=== PATIENT | female | born 1950 | race Asian ===

== ENCOUNTER 2017-06-27 16:12 | Outpatient (CLI) | payer MEDICARE, OTHER ==
[2017-06-27 12:50] LABS: BASOPHILS % (AUTO) 0.7 %; EOSINOPHILS # (AUTO) 0.1 10^3/uL (0.0-0.7); EOSINOPHILS % (AUTO) 2.2 %; HCT - HEMATOCRIT 41.3 % (37.0-47.0); HGB - HEMOGLOBIN 13.9 g/dL (12.0-16.0); LYMPHOCYTES # (AUTO) 2.6 10^3/uL (1.5-3.5); LYMPHOCYTES % (AUTO) 43.8 %; MEAN CORPUSCULAR HEMOGLOBIN 29.5 pg (27.0-31.0); MEAN CORPUSCULAR HGB CONC 33.7 g/dL (32.0-36.0); MEAN CORPUSCULAR VOLUME 87.6 fL (81.0-99.0); MEAN PLATELET VOLUME 8.8 fL (7.9-10.8); MONOCYTES # (AUTO) 0.4 10^3/uL (0.0-1.0); MONOCYTES % (AUTO) 6.1 %; NEUTROPHILS # (AUTO) 2.8 10^3/uL (1.5-6.6); NEUTROPHILS % (AUTO) 47.2 %; NUCLEATED RED BLOOD CELLS AUTO 0.1 /100WBC; RED BLOOD COUNT 4.71 10^6/uL (4.20-5.40); RED CELL DISTRIBUTION WIDTH 13.8 % (12.0-15.0); UNCORRECTED WHITE BLOOD COUNT 5.9 x10^3/uL; WHITE BLOOD COUNT 5.9 x10^3/uL (4.8-10.8)
[2017-06-27 13:33] LABS: ALBUMIN/GLOBULIN RATIO 1.2 (1.0-2.2); BILIRUBIN,TOTAL 0.9 mg/dL (0.2-1.0); BUN - BLOOD UREA NITROGEN 15 mg/dL (6-20); CALCIUM 9.2 mg/dL (8.5-10.3); CARBON DIOXIDE - CO2 28 mmol/L (21-32); CHLORIDE 101 mmol/L (101-111); CHOL/HDL RATIO 2.9 (<4.4); CHOLESTEROL 195 mg/dL; CREATININE 0.8 mg/dL (0.4-1.0); GFR - MDRD 72 (>89); GLUCOSE 99 mg/dL (70-100); HDL CHOLESTEROL 67 mg/dL; LDL/HDL RATIO 1.6 (<4.4); POTASSIUM 3.5 mmol/L (3.5-5.0); SODIUM 137 mmol/L (135-145); TOTAL PROTEIN 7.1 g/dL (6.7-8.2); TRIGLYCERIDES 116 mg/dL; VLDL CHOLESTEROL 23 mg/dL
== END 2017-06-27 16:13 | disposition home or self-care (01) ==
LOC: LAB.WCP 16:12
PROVIDERS: ATTEND Family Medicine
DX: E03.9 Hypothyroidism, unspecified (principal); E78.5 Hyperlipidemia, unspecified
CPT/HCPCS: 36415; 80053; 80061; 84443; 85025

== ENCOUNTER 2018-05-03 13:37 | Outpatient (CLI) | payer MEDICARE, OTHER ==
--- NOTE | 2018-05-05 15:09 | Mammography Report ---
Procedure Date: 05/03/2018 Accession Number: [id number] / [id number] Procedure: MGN - Screening Mammo Dig Bilat CPT Code: FULL RESULT: EXAM: Screening Mammo Dig Bilat DATE: 05/03/2018 1:58 PM CLINICAL HISTORY: 67-year-old nulliparous patient for screening TECHNIQUE: Bilateral CC, laterally exaggerated CC, MLO views were obtained. COMPARISON: 05/31/2016, 04/03/2015, 03/17/2015, 11/07/2013, 05/22/2012, 04/15/2011 FINDINGS: The breasts demonstrate heterogeneously dense fibroglandular parenchyma bilaterally. Punctate, typically benign calcifications are present. No suspicious masses, clustered microcalcifications, or regions of architectural distortion are identified. IMPRESSION: Benign findings RECOMMENDATION: Routine annual screening unless otherwise clinically indicated. BIRADS CATEGORY 2: Benign findings STANDARD QUALIFYING STATEMENTS: 1. This examination was reviewed with the aid of Computer-Aided Detection (CAD). 2. A negative or benign imaging report should not delay biopsy if clinically suspicious findings are present. Consider surgical consultation if warrented. More than 5% of cancers are not identified by imaging. 3. Dense breasts may obscure an underlying neoplasm.
== END 2018-05-03 13:38 | disposition home or self-care (01) ==
LOC: DI.N 13:37
PROVIDERS: ATTEND Family Medicine
DX: Z12.31 Encounter for screening mammogram for malignant neoplasm of breast (principal)
CPT/HCPCS: 77067

== ENCOUNTER 2018-05-23 09:18 | Outpatient (CLI) | payer MEDICARE, OTHER ==
[2018-05-23 12:43] LABS: BASOPHILS % (AUTO) 0.4 %; EOSINOPHILS # (AUTO) 0.1 10^3/uL (0.0-0.7); EOSINOPHILS % (AUTO) 1.7 %; HGB - HEMOGLOBIN 14.3 g/dL (12.0-16.0); LYMPHOCYTES # (AUTO) 2.3 10^3/uL (1.5-3.5); MEAN CORPUSCULAR HEMOGLOBIN 29.6 pg (27.0-31.0); MEAN CORPUSCULAR HGB CONC 32.8 g/dL (32.0-36.0); MEAN CORPUSCULAR VOLUME 90.4 fL (81.0-99.0); MEAN PLATELET VOLUME 9.2 fL (7.9-10.8); MONOCYTES # (AUTO) 0.4 10^3/uL (0.0-1.0); MONOCYTES % (AUTO) 6.2 %; NEUTROPHILS # (AUTO) 3.2 10^3/uL (1.5-6.6); NEUTROPHILS % (AUTO) 52.7 %; PLT - PLATELET COUNT 231 10^3/uL (130-450); RED BLOOD COUNT 4.82 10^6/uL (4.20-5.40)
[2018-05-23 13:02] LABS: ALBUMIN 3.9 g/dL (3.2-5.5); ALBUMIN/GLOBULIN RATIO 1.1 (1.0-2.2); ALKALINE PHOSPHATASE 49 IU/L (42-121); ALT ALANINE AMINOTRANSFERASE 26 IU/L (10-60); AST ASPARTATE AMINOTRANSFERASE 25 IU/L (10-42); BILIRUBIN,TOTAL 0.8 mg/dL (0.2-1.0); BUN - BLOOD UREA NITROGEN 22 mg/dL (6-20); CALCIUM 9.4 mg/dL (8.5-10.3); CARBON DIOXIDE - CO2 28 mmol/L (21-32); CHLORIDE 99 mmol/L (101-111); CHOL/HDL RATIO 3.2 (<4.4); CHOLESTEROL 240 mg/dL; CREATININE 0.8 mg/dL (0.4-1.0); GFR - MDRD 72 (>89); GLUCOSE 100 mg/dL (70-100); HDL CHOLESTEROL 74 mg/dL; LDL CHOLESTEROL,CALCULATED 135 mg/dL; LDL/HDL RATIO 1.8 (<4.4); SODIUM 135 mmol/L (135-145); THYROID STIMULATING HORMONE 0.33 uIU/mL (0.34-5.60); TOTAL PROTEIN 7.6 g/dL (6.7-8.2); VLDL CHOLESTEROL 31 mg/dL
[2018-05-23 13:04] LABS: FREE T4 (FREE THYROXINE) 1.09 ng/dL (0.58-1.64)
== END 2018-05-23 09:19 | disposition home or self-care (01) ==
LOC: LAB.WCP 09:18
PROVIDERS: ATTEND Family Medicine
DX: K59.09 Other constipation (principal); E04.2 Nontoxic multinodular goiter; E03.9 Hypothyroidism, unspecified
CPT/HCPCS: 36415; 80053; 80061; 83721; 84439; 84443; 85025

== ENCOUNTER 2019-06-20 08:00 | Outpatient (CLI) | payer MEDICARE, OTHER ==
[2019-06-20 12:45] LABS: BASOPHILS % (AUTO) 0.4 %; EOSINOPHILS # (AUTO) 0.2 10^3/uL (0.0-0.7); EOSINOPHILS % (AUTO) 2.2 %; HGB - HEMOGLOBIN 14.5 g/dL (12.0-16.0); LYMPHOCYTES # (AUTO) 3.2 10^3/uL (1.5-3.5); LYMPHOCYTES % (AUTO) 47.6 %; MEAN CORPUSCULAR HEMOGLOBIN 29.1 pg (27.0-31.0); MEAN CORPUSCULAR HGB CONC 31.8 g/dL (32.0-36.0); MEAN CORPUSCULAR VOLUME 91.6 fL (81.0-99.0); MEAN PLATELET VOLUME 10.8 fL (7.9-10.8); MONOCYTES # (AUTO) 0.5 10^3/uL (0.0-1.0); MONOCYTES % (AUTO) 6.9 %; NEUTROPHILS # (AUTO) 2.9 10^3/uL (1.5-6.6); NEUTROPHILS % (AUTO) 42.8 %; PLT - PLATELET COUNT 263 10^3/uL (130-450); RED BLOOD COUNT 4.98 10^6/uL (4.20-5.40); RED CELL DISTRIBUTION WIDTH 13.5 % (12.0-15.0); WHITE BLOOD COUNT 6.8 x10^3/uL (4.8-10.8)
[2019-06-20 13:38] LABS: HEMOGLOBIN A1C 0.61 g/dL; HEMOGLOBIN A1C % 5.9 % (4.6-6.2)
[2019-06-20 13:41] LABS: ALBUMIN/GLOBULIN RATIO 1.2 (1.0-2.2); ALKALINE PHOSPHATASE 55 IU/L (42-121); ALT ALANINE AMINOTRANSFERASE 23 IU/L (10-60); AST ASPARTATE AMINOTRANSFERASE 26 IU/L (10-42); BILIRUBIN,TOTAL 0.9 mg/dL (0.2-1.0); BUN - BLOOD UREA NITROGEN 25 mg/dL (6-20); CALCIUM 9.5 mg/dL (8.5-10.3); CARBON DIOXIDE - CO2 28 mmol/L (21-32); CHLORIDE 101 mmol/L (101-111); CHOL/HDL RATIO 2.8 (<4.4); CHOLESTEROL 235 mg/dL; CREATININE 0.8 mg/dL (0.4-1.0); GFR - MDRD 71 (>89); GLUCOSE 95 mg/dL (70-100); HDL CHOLESTEROL 83 mg/dL; LDL CHOLESTEROL,CALCULATED 122 mg/dL; LDL/HDL RATIO 1.5 (<4.4); SODIUM 139 mmol/L (135-145); TOTAL PROTEIN 7.3 g/dL (6.7-8.2); VLDL CHOLESTEROL 30 mg/dL
== END 2019-06-20 08:01 | disposition home or self-care (01) ==
LOC: LAB.WCP 08:00
PROVIDERS: ATTEND Family Medicine
DX: E04.2 Nontoxic multinodular goiter (principal); E78.5 Hyperlipidemia, unspecified; R73.02 Impaired glucose tolerance (oral)
CPT/HCPCS: 36415; 80053; 80061; 83036; 83721; 84443; 85025

== ENCOUNTER 2019-07-12 13:26 | Outpatient (CLI) | payer MEDICARE, OTHER ==
--- NOTE | 2019-07-12 15:58 | Mammography Report ---
Reason: SCREENING MAMMO Procedure Date: 07/12/2019 Accession Number: [id number] / [id number] Procedure: MGN - Screening Mammo Dig Bilat CPT Code: FULL RESULT: EXAM: Screening Mammo Dig Bilat DATE: 07/12/2019 1:50 PM CLINICAL HISTORY: Routine screening. No reported personal or family history of breast cancer. TECHNIQUE: (B) - Bilateral CC and MLO views were obtained. COMPARISON: 05/03/2018 through 11/07/2013. PARENCHYMAL PATTERN: (D) - The breasts demonstrate heterogeneously dense fibroglandular parenchyma bilaterally. FINDINGS: Bilateral breasts: There are no suspicious masses, calcifications, or areas of distortion. IMPRESSION: Negative examination. BI-RADS category 1. RECOMMENDATION: (ANNUAL) - Recommend routine annual screening mammography. BI-RADS CATEGORY: (1) - Negative. STANDARD QUALIFYING STATEMENTS: 1. This examination was not reviewed with the aid of Computer-Aided Detection (CAD). 2. A negative or benign imaging report should not preclude biopsy if clinically suspicious findings are present. 3. Dense breasts may obscure an underlying neoplasm. 4. This examination was reviewed without the aid of 3D breast imaging (tomosynthesis).
== END 2019-07-12 13:27 | disposition home or self-care (01) ==
LOC: DI.N 13:26
DX: Z12.31 Encounter for screening mammogram for malignant neoplasm of breast (principal)
CPT/HCPCS: 77067

== ENCOUNTER 2020-05-26 09:18 | Outpatient (CLI) | payer MEDICARE, OTHER ==
[2020-05-26 13:12] LABS: BASOPHILS % (AUTO) 0.3 %; EOSINOPHILS # (AUTO) 0.1 10^3/uL (0.0-0.7); EOSINOPHILS % (AUTO) 1.4 %; HGB - HEMOGLOBIN 14.7 g/dL (12.0-16.0); LYMPHOCYTES # (AUTO) 2.4 10^3/uL (1.5-3.5); LYMPHOCYTES % (AUTO) 33.5 %; MEAN CORPUSCULAR HGB CONC 31.7 g/dL (32.0-36.0); MEAN CORPUSCULAR VOLUME 91.3 fL (81.0-99.0); MEAN PLATELET VOLUME 11.2 fL (7.9-10.8); MONOCYTES # (AUTO) 0.4 10^3/uL (0.0-1.0); MONOCYTES % (AUTO) 5.6 %; NEUTROPHILS # (AUTO) 4.3 10^3/uL (1.5-6.6); NEUTROPHILS % (AUTO) 58.9 %; PLT - PLATELET COUNT 256 10^3/uL (130-450); RED BLOOD COUNT 5.07 10^6/uL (4.20-5.40); RED CELL DISTRIBUTION WIDTH 13.4 % (12.0-15.0); WHITE BLOOD COUNT 7.2 x10^3/uL (4.8-10.8)
[2020-05-26 13:48] LABS: ALBUMIN 4.8 g/dL (3.2-5.5); ALBUMIN/GLOBULIN RATIO 1.6 (1.0-2.2); BILIRUBIN,TOTAL 0.8 mg/dL (0.2-1.0); CALCIUM 9.6 mg/dL (8.5-10.3); CREATININE 0.9 mg/dL (0.4-1.0); TOTAL PROTEIN 7.8 g/dL (6.7-8.2)
== END 2020-05-26 23:59 | disposition home or self-care (01) ==
LOC: LAB.WCP 09:18
PROVIDERS: ATTEND Family Medicine
DX: E04.2 Nontoxic multinodular goiter (principal); E03.9 Hypothyroidism, unspecified; E78.5 Hyperlipidemia, unspecified
CPT/HCPCS: 36415; 80053; 84443; 85025

== ENCOUNTER 2020-08-12 10:05 | Outpatient (CLI) | payer MEDICARE, OTHER ==
--- NOTE | 2020-08-13 14:14 | Mammography Report ---
BILATERAL DIGITAL DIAGNOSTIC MAMMOGRAM 3D/2D: 08/12/2020 CLINICAL: Occasional left breast pain. Diffuse left breast pain. Comparison is made to exams dated: 07/12/2019 mammogram, 05/03/2018 mammogram, 05/31/2016 mammogram, mammogram, 11/07/2013 mammogram, and 05/22/2012 mammogram - [facility]. The tissue of both breasts is heterogeneously dense. This may lower the sensitivity of mammography. No significant masses, calcifications, or other findings are seen in either breast. IMPRESSION: NEGATIVE There is no mammographic evidence of malignancy. No abnormality or significant mammographic change in this patient with diffuse breast pain. Exam findings were conveyed to the patient. The patient was advised to monitor for significant change and follow-up with her Doctor as needed. Otherwise, a 1 year screening mammogram is recommended. This exam was interpreted at Station ID: [id number]. NOTE: For mammograms, a report in lay terms will be sent to the patient. Approximately 15% of breast malignancies will not be visualized mammographically. In the management of a palpable breast mass, a negative mammogram must not discourage biopsy of a clinically suspicious lesion. Electronically Signed By: Maldoando Oliver M.D. slc/:08/12/2020 10:56:40 ACR BI-RADS Category 1: Negative 3341F PARENCHYMAL PATTERN: (D) - The breast(s) demonstrate(s) heterogeneously dense fibroglandular kimmy kennedy. BI-RADS CATEGORY: (1) - 1 RECOMMENDATION: (ANNUAL) - Recommend routine annual screening mammography. [id number] 1 year screening LATERALITY: (B)
== END 2020-08-12 10:06 | disposition home or self-care (01) ==
LOC: DI 10:05
PROVIDERS: ATTEND Family Medicine
DX: N64.4 Mastodynia (principal)
CPT/HCPCS: 77066

== ENCOUNTER 2020-11-24 08:49 | Outpatient (CLI) | payer MEDICARE, OTHER ==
[2020-11-24 12:08] LABS: BASOPHILS % (AUTO) 0.5 %; EOSINOPHILS # (AUTO) 0.1 10^3/uL (0.0-0.7); HGB - HEMOGLOBIN 14.1 g/dL (12.0-16.0); LYMPHOCYTES % (AUTO) 35.1 %; MEAN CORPUSCULAR HEMOGLOBIN 29.7 pg (27.0-31.0); MEAN CORPUSCULAR HGB CONC 32.3 g/dL (32.0-36.0); MEAN CORPUSCULAR VOLUME 91.8 fL (81.0-99.0); MEAN PLATELET VOLUME 10.8 fL (7.9-10.8); MONOCYTES # (AUTO) 0.4 10^3/uL (0.0-1.0); MONOCYTES % (AUTO) 6.7 %; NEUTROPHILS # (AUTO) 3.3 10^3/uL (1.5-6.6); NEUTROPHILS % (AUTO) 56.5 %; PLT - PLATELET COUNT 233 10^3/uL (130-450); RED BLOOD COUNT 4.75 10^6/uL (4.20-5.40); RED CELL DISTRIBUTION WIDTH 13.1 % (12.0-15.0); WHITE BLOOD COUNT 5.8 x10^3/uL (4.8-10.8)
[2020-11-24 13:17] LABS: ALBUMIN 4.1 g/dL (3.2-5.5); ALBUMIN/GLOBULIN RATIO 1.3 (1.0-2.2); ALKALINE PHOSPHATASE 39 IU/L (42-121); ALT ALANINE AMINOTRANSFERASE 21 IU/L (10-60); AST ASPARTATE AMINOTRANSFERASE 22 IU/L (10-42); BILIRUBIN,TOTAL 0.9 mg/dL (0.2-1.0); BUN - BLOOD UREA NITROGEN 22 mg/dL (6-20); CALCIUM 9.5 mg/dL (8.5-10.3); CARBON DIOXIDE - CO2 28 mmol/L (21-32); CHLORIDE 104 mmol/L (101-111); CHOL/HDL RATIO 2.5 (<4.4); CHOLESTEROL 192 mg/dL; CREATININE 0.8 mg/dL (0.4-1.0); GLUCOSE 113 mg/dL (70-100); HDL CHOLESTEROL 77 mg/dL; LDL CHOLESTEROL,CALCULATED 99 mg/dL; LDL/HDL RATIO 1.3 (<4.4); TOTAL PROTEIN 7.2 g/dL (6.7-8.2); VLDL CHOLESTEROL 16 mg/dL
[2020-11-24 13:40] LABS: HEMOGLOBIN A1c% 5.7 % (4.27-6.07)
[2020-11-24 14:02] LABS: FREE T4 (FREE THYROXINE) 1.21 ng/dL (0.58-1.64)
== END 2020-11-24 23:59 | disposition home or self-care (01) ==
LOC: LAB.WCP 08:49
PROVIDERS: ATTEND Nurse Practitioner Family
DX: E74.39 Other disorders of intestinal carbohydrate absorption (principal); E78.5 Hyperlipidemia, unspecified; G62.9 Polyneuropathy, unspecified; K64.9 Unspecified hemorrhoids; R19.7 Diarrhea, unspecified
CPT/HCPCS: 36415; 80053; 80061; 83036; 83721; 84439; 84443; 85025

== ENCOUNTER 2020-12-01 13:50 | Outpatient (CLI) | payer MEDICARE, OTHER ==
[2020-12-01 20:22] LABS: CREATININE,URINE 39.2 mg/dL; MICROALBUM/CREATININE RATIO,UR 1882.7 ug/mg (<30.0); MICROALBUMIN,URINE 73.8 mg/dL (0-300.0)
== END 2020-12-01 23:59 ==
LOC: LAB.WCP 13:50
PROVIDERS: ATTEND Nurse Practitioner Family
DX: R80.9 Proteinuria, unspecified (principal)
CPT/HCPCS: 82043; 82570; 84156

== ENCOUNTER 2021-01-15 08:39 | Day surgery (SDC) | payer MEDICARE, OTHER ==
[2021-01-15] MEDS ORDERED: LACTATED RINGERS 1,000 ML IV ONE ×2 (08:51→10:46)
[2021-01-15] MEDS ORDERED: fentaNYL 250 MCG/5 ML VIAL ONE (10:12)
[2021-01-15] MEDS ORDERED: MIDAZOLAM 2 MG/2 ML VIAL ONE ×2 (10:12→10:14)
[2021-01-15] MEDS ORDERED: LIDOCAINE JELLY 2% 6 ML JEL.PF.APP UR ONE (10:36)
[2021-01-15] MEDS ORDERED: LIDOCAINE JELLY 2% 6 ML JEL.PF.APP ONE (10:47)
--- NOTE | 2021-01-15 10:59 | OPERATIVE REPORT ---
Operative Report - General Procedure Date: 01/15/21 Planned Procedure: EUA with hemorrhoid banding Pre-Op Diagnosis: Prolapsed and bleeding internal hemorrhoids Procedure Performed: EUA with hemorrhoid banding Post Op Diagnosis: Same - Procedure Note Primary Surgeon: Mercedes Anesthesia Technique: Local, Moderate sedation Estimated Blood Loss (mL): 0 Findings: Pelvic floor relaxation with rectocele and internal hemorrhoids Complications: None apparent - Other Other Information/Narrative: Colonoscopy was completed immediately prior to the banding procedure. Timeout was done at the start of the colonoscopy procedure.The patient remained sedated with monitored anesthesia care at this time. All elements of the surgical safety checklist were followed before, during, and after this procedure. The anoscope with obturator was lubricated and placed in the patient's anal canal. The obturator was removed to visualize the first column of hemorrhoids at the 4 o'clock position. The tissue was grasped and a single band deployed with good placement and traction. The retractor was roatated to the view the complex at the 11 o'clock position. Again, the tissue was grasped and a single band deployed with good placement and traction. The retractor was roatated to the view the complex at the 8 o'clock position. Again, the tissue was grasped and a single band deployed with good placement and traction.The anoscope was removed and the procedure concluded. The patient tolerated the procedure well. She was allowed awaken from sedation and taken to the postanesthesia care unit in good condition.
[2021-01-15 11:34] VITALS: BP 97/57
== END 2021-01-15 08:40 | disposition home or self-care (01) ==
LOC: SDS 08:39
PROVIDERS: ATTEND Surgery
PROC: 0DJD8ZZ Inspection of Lower Intestinal Tract, Via Natural or Artificial Opening Endoscopic (ICD-10-PCS; 2021-01-15)
PROC: 06LY4CC Occlusion of Hemorrhoidal Plexus with Extraluminal Device, Percutaneous Endoscopic Approach (ICD-10-PCS; principal; 2021-01-15 09:45)
DX: K62.5 Hemorrhage of anus and rectum (principal); K64.8 Other hemorrhoids; K57.30 Diverticulosis of large intestine without perforation or abscess without bleeding; K59.00 Constipation, unspecified; N81.89 Other female genital prolapse; N81.6 Rectocele
CPT/HCPCS: 45378; 46221; J3010; J7120

== ENCOUNTER 2021-03-03 14:38 | Outpatient (CLI) | payer MEDICARE, OTHER ==
[2021-03-03 18:37] LABS: THYROID STIMULATING HORMONE 0.15 uIU/mL (0.34-5.60)
[2021-03-03 18:39] LABS: CREATININE,URINE 23.2 mg/dL; MICROALBUM/CREATININE RATIO,UR 564.7 ug/mg (<30.0); MICROALBUMIN,URINE 13.1 mg/dL (0-300.0)
[2021-03-03 19:32] LABS: FREE T4 (FREE THYROXINE) 1.22 ng/dL (0.58-1.64)
== END 2021-03-03 23:59 | disposition home or self-care (01) ==
LOC: LAB.WCP 14:38
PROVIDERS: ATTEND Nurse Practitioner Family
DX: R80.9 Proteinuria, unspecified (principal); E03.9 Hypothyroidism, unspecified
CPT/HCPCS: 36415; 82043; 82570; 84439; 84443

== ENCOUNTER 2021-03-14 11:00 | Outpatient (CLI) | payer MEDICARE, OTHER ==
--- NOTE | 2021-03-14 13:38 | Ultrasound Report ---
PROCEDURE: Head or Neck Soft Tissue INDICATIONS: THYROID NODULE TECHNIQUE: Real-time scanning was performed of the thyroid gland, with image documentation. COMPARISON: 05/31/2016, 01/29/2011 FINDINGS: Right: Thyroid lobe measures 6.4 x 2.1 x 1.9 cm. Left: Thyroid lobe measures 5.6 x 1.3 x 1.7 cm. Isthmus: 8 mm thick. Nodule number: 1 Location: The thyroid anteriorly Size: 1.4 x 0.7 x 1.5 cm, prior 1.5 x 0.8 x 1.5 cm. Composition: Solid Echogenicity: Hypoechoic Shape: wider than tall. Margins: Size Echogenic foci: None Total points: 4 ACR TI-RADS category: 4 Nodule number: 2 Location: Right mid thyroid posteriorly Size: 1.3 x 0.9 x 1.2 cm, prior 1.3 x 0.7 x 1 cm. Composition: Solid Echogenicity: Hypoechoic Shape: wider than tall. Margins: Smooth Echogenic foci: None Total points: 4 ACR TI-RADS category: 4 Nodule number: 3 Location: Right inferior thyroid medially Size: 0.8 x 0.4 x 0.6 cm. Composition: Solid Echogenicity: Hypoechoic Shape: wider than tall. Margins: Smooth Echogenic foci: Punctate Total points: 7 ACR TI-RADS category: 5 Nodule number: 4 Location: Left inferior thyroid Size: 1.1 x 0.7 x 0.9 cm, prior 0.7 x 0.5 x 0.6 cm. Composition: Solid Echogenicity: Isoechoic Shape: wider than tall. Margins: Smooth Echogenic foci: None Total points: 3 ACR TI-RADS category: 3 Nodule number: 5 Location: Inferior isthmus Size: 2 x 0.9 x 1.9 cm, prior 1.8 x 0.9 x 1.8 cm. Composition: Solid Echogenicity: Hypoechoic Shape: wider than tall. Margins: Smooth Echogenic foci: None Total points: 4 ACR TI-RADS category: 4 IMPRESSION: Multiple bilateral thyroid nodules are seen, which are largely stable compared to the pr ior. However, there is a new suspicious nodule at the inferior pole of the right thyroid, which demonstrat es punctate calcification. By published criteria, a 1 year follow-up is recommended, given the size o f this nodule. ACR TI-RADS definitions and recommendations: TI-RADS 1 (benign): 0 points. FNA not needed. TI-RADS 2 (not suspicious): 2 points. FNA not needed. TI-RADS 3 (mildly suspicious): 3 points. ? FNA if 2.5 cm or larger, follow up if 1.5 cm or larger (at 1, 3, and 5 years). TI-RADS 4 (moderately suspicious): 4-6 points. ? FNA if 1.5 cm or larger, follow up if 1 cm or larger (at 1, 2, 3, and 5 years). TI-RADS 5 (highly suspicious): 7 points or more. ? FNA if 1 cm or larger, follow up if 0.5 cm or larger (every year for 5 years). Reviewed by: Gaurav Tavarez MD on 03/14/2021 12:37 PM JANET Approved by: Gaurav Tavarez MD on 03/14/2021 12:37 PM JANET Station ID: [id number]
== END 2021-03-14 11:01 | disposition home or self-care (01) ==
LOC: DI 11:00
PROVIDERS: ATTEND Nurse Practitioner Family
DX: E04.2 Nontoxic multinodular goiter (principal)

== ENCOUNTER 2021-05-01 08:00 | Outpatient (CLI) | payer MEDICARE, OTHER ==
[2021-05-01 12:28] LABS: THYROID STIMULATING HORMONE 1.52 uIU/mL (0.34-5.60)
== END 2021-05-01 23:59 | disposition home or self-care (01) ==
LOC: LAB.WCP 08:00
PROVIDERS: ATTEND Nurse Practitioner Family
DX: E03.9 Hypothyroidism, unspecified (principal)
CPT/HCPCS: 36415; 84443

== ENCOUNTER 2021-05-08 08:00 | Outpatient (CLI) | payer MEDICARE, OTHER ==
[2021-05-08 18:03] LABS: CALCIUM 9.4 mg/dL (8.5-10.3); CREATININE 0.9 mg/dL (0.4-1.0); POTASSIUM 4.1 mmol/L (3.5-5.0)
[2021-05-08 18:17] LABS: CREATININE,URINE 38.9 mg/dL; PROTEIN/CREATININE RATIO,URINE 0.7 (<=0.2)
== END 2021-05-08 23:59 | disposition home or self-care (01) ==
LOC: LAB.WCP 08:00
PROVIDERS: ATTEND Internal Medicine Nephrology
DX: N05.9 Unspecified nephritic syndrome with unspecified morphologic changes (principal); R80.9 Proteinuria, unspecified
CPT/HCPCS: 36415; 80048; 82570; 84156

== ENCOUNTER 2021-07-22 08:00 | Outpatient (CLI) | payer MEDICARE, OTHER ==
[2021-07-22 12:32] LABS: ALBUMIN 4.2 g/dL (3.2-5.5); ALBUMIN/GLOBULIN RATIO 1.2 (1.0-2.2); ALKALINE PHOSPHATASE 37 IU/L (42-121); ALT ALANINE AMINOTRANSFERASE 20 IU/L (10-60); AST ASPARTATE AMINOTRANSFERASE 23 IU/L (10-42); BILIRUBIN,TOTAL 0.9 mg/dL (0.2-1.0); BUN - BLOOD UREA NITROGEN 32 mg/dL (6-20); CALCIUM 9.4 mg/dL (8.5-10.3); CARBON DIOXIDE - CO2 28 mmol/L (21-32); CHLORIDE 103 mmol/L (101-111); CHOL/HDL RATIO 2.8 (<4.4); CHOLESTEROL 218 mg/dL; GFR - MDRD 55 (>89); GLUCOSE 107 mg/dL (70-100); HDL CHOLESTEROL 79 mg/dL; LDL CHOLESTEROL,CALCULATED 120 mg/dL; LDL/HDL RATIO 1.5 (<4.4); POTASSIUM 4.1 mmol/L (3.5-5.0); SODIUM 140 mmol/L (135-145); TOTAL PROTEIN 7.7 g/dL (6.7-8.2); TRIGLYCERIDES 93 mg/dL; VLDL CHOLESTEROL 19 mg/dL
[2021-07-22 12:33] LABS: BASOPHILS % (AUTO) 0.5 %; CRP - C-REACTIVE PROTEIN < 1.0 mg/dL (0-1.0); EOSINOPHILS # (AUTO) 0.1 10^3/uL (0.0-0.7); HCT - HEMATOCRIT 41.9 % (37.0-47.0); HGB - HEMOGLOBIN 13.6 g/dL (12.0-16.0); LYMPHOCYTES # (AUTO) 2.4 10^3/uL (1.5-3.5); MEAN CORPUSCULAR HEMOGLOBIN 30.4 pg (27.0-31.0); MEAN CORPUSCULAR HGB CONC 32.5 g/dL (32.0-36.0); MEAN CORPUSCULAR VOLUME 93.5 fL (81.0-99.0); MONOCYTES # (AUTO) 0.3 10^3/uL (0.0-1.0); MONOCYTES % (AUTO) 5.2 %; NEUTROPHILS # (AUTO) 3.1 10^3/uL (1.5-6.6); NEUTROPHILS % (AUTO) 52.1 %; PLT - PLATELET COUNT 231 10^3/uL (130-450); RED BLOOD COUNT 4.48 10^6/uL (4.20-5.40); RED CELL DISTRIBUTION WIDTH 12.8 % (12.0-15.0); WHITE BLOOD COUNT 5.9 x10^3/uL (4.8-10.8)
[2021-07-22 12:35] LABS: ESTIMATED AVERAGE GLUCOSE 123 mg/dL (70-100); HEMOGLOBIN A1c% 5.9 % (4.27-6.07)
[2021-07-22 12:37] LABS: THYROID STIMULATING HORMONE 1.19 uIU/mL (0.34-5.60)
[2021-07-22 12:53] LABS: CREATININE,URINE 80.4 mg/dL; MICROALBUM/CREATININE RATIO,UR 322.1 ug/mg (<30.0); MICROALBUMIN,URINE 25.9 mg/dL (0-300.0); PROTEIN/CREATININE RATIO,URINE 0.5 (<=0.2)
== END 2021-07-22 23:59 | disposition home or self-care (01) ==
LOC: LAB.WCP 08:00
PROVIDERS: ATTEND Internal Medicine
DX: I10 Essential (primary) hypertension (principal); E78.5 Hyperlipidemia, unspecified; E74.39 Other disorders of intestinal carbohydrate absorption; E04.1 Nontoxic single thyroid nodule; D47.2 Monoclonal gammopathy; E03.9 Hypothyroidism, unspecified
CPT/HCPCS: 36415; 80053; 80061; 82043; 82570; 83036; 83721; 84156; 84443; 85025; 85651; 86140

== ENCOUNTER 2021-08-17 12:52 | Outpatient (CLI) | payer MEDICARE, OTHER ==
--- NOTE | 2021-08-17 14:26 | MRI Report ---
PROCEDURE: Brain W/O INDICATIONS: NEW DAILY HEADACHE TECHNIQUE: Noncontrast axial T1 spin echo, axial T2 fast spin echo, sagittal and axial FLAIR, coronal T2 fast sp in echo, axial gradient echo, axial diffusion and ADC through the brain. COMPARISON: None. FINDINGS: Image quality: Excellent. CSF Spaces: Basal cisterns are patent. No extra-axial fluid collections. Ventricles are normal in size and shape. Brain: No intracranial masses or hemorrhage. Sierra/white matter interface is normal. Brainstem appe ars normal. Diffusion-weighted images demonstrate no acute ischemic insult. No chronic ischemic ins ults. Normal intravascular flow voids are present. Age-appropriate brain parenchymal volume loss an d chronic small vessel ischemic change can be seen. Skull and face: Calvarium has normal marrow signal. Orbits appear normal. Incidental note is made of bilateral lens replacements. Sinuses: Sinuses and mastoids are clear. IMPRESSION: A cause of headache cannot be seen on these images. No masses or mass effect can be seen. No brain edema or hydrocephalus. No Chiari I formation. Age-appropriate brain parenchymal volume loss and chronic small vessel ischemic change can be seen. No findings of acute or subacute infarction are seen. Reviewed by: Gaurav Tavarez MD on 08/17/2021 1:25 PM JANET Approved by: Gaurav Tavarez MD on 08/17/2021 1:25 PM JANET Station ID: [id number]
== END 2021-08-17 12:53 | disposition home or self-care (01) ==
LOC: DI 12:52
PROVIDERS: ATTEND Internal Medicine
DX: G44.52 New daily persistent headache (NDPH) (principal)

== ENCOUNTER → 2021-08-18 | Outpatient (CLI) | payer MEDICARE, OTHER ==
--- NOTE | 2021-08-18 18:51 | XRAY Report ---
PROCEDURE: Hips 2V BILAT INDICATIONS: BURSITIS, BILATERAL HIP PX TECHNIQUE: 3 views of the hip were acquired. COMPARISON: None FINDINGS: Bones: No fractures or dislocations. Symmetric appearing mild to moderate bilateral hip joint osteoa rthritic changes are seen. No evidence of avascular necrosis of femoral head. No suspicious bony les ions. The visualized pelvic ring appears intact. Soft tissues: No suspicious soft tissue calcifications or masses. 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 No hip fracture or dislocation. No sancho dence of avascular necrosis. Reviewed by: Clint Gurrola MD on 08/18/2021 6:50 PM PDT Approved by: Clint Gurrola MD on 08/18/2021 6:50 PM PDT Station ID: [id number]
== END ==
LOC: DI.N 16:01
PROVIDERS: ATTEND Physician Assistant Medical
DX: M16.0 Bilateral primary osteoarthritis of hip (principal)

== ENCOUNTER 2021-11-11 12:25 | Outpatient (CLI) | payer MEDICARE, OTHER ==
[2021-11-11 17:57] LABS: CALCIUM 9.3 mg/dL (8.5-10.3); CREATININE 0.9 mg/dL (0.4-1.0); CREATININE,URINE 24.9 mg/dL; POTASSIUM 3.8 mmol/L (3.5-5.0); PROTEIN/CREATININE RATIO,URINE 1.2 (<=0.2)
== END 2021-11-11 23:59 | disposition home or self-care (01) ==
LOC: LAB.WCP 12:25
PROVIDERS: ATTEND Internal Medicine Nephrology
DX: N05.9 Unspecified nephritic syndrome with unspecified morphologic changes (principal); R80.9 Proteinuria, unspecified
CPT/HCPCS: 36415; 80048; 82570; 84156

== ENCOUNTER 2022-02-03 14:25 | Outpatient (CLI) | payer MEDICARE, OTHER ==
--- NOTE | 2022-02-03 19:27 | Ultrasound Report ---
PROCEDURE: Head or Neck Soft Tissue INDICATIONS: THYROID NODULE TECHNIQUE: Real-time scanning was performed of the thyroid gland, with image documentation. COMPARISON: Thyroid ultrasound 03/14/2021 05/31/2016. FINDINGS: Right: Thyroid lobe measures 6.4 x 2.3 x 2.1 cm, and is homogeneous in echotexture. Left: Thyroid lobe measures 6 x 2.2 x 1.4 cm, and is homogenous in echotexture. Isthmus: 0.5 cm thick. Multiple thyroid nodules. The 3 most suspicious are reported. Nodule number: One Location: Right inferior medial Size: 0.6 x 0.6 x 0.5 cm. (Previously 0.8 x 0.6 x 0.4 cm) Composition: Solid Echogenicity: Hypoechoic Shape: wider than tall. Margins: Smooth Echogenic foci: Punctate Total points: 4 ACR TI-RADS category: TR 4, moderately suspicious Nodule number: Two Location: Isthmus right inferior Size: 1.5 x 1.2 x 1 cm. (Previously 2 x 1.9 x 0.9 cm) Composition: Solid Echogenicity: Isoechoic Shape: wider than tall. Margins: Smooth Echogenic foci: Punctate. Very subtle. Total points: 6 ACR TI-RADS category: TR 4, moderately suspicious Nodule number: Three Location: Left mid posterior Size: 1 x 0.7 x 0.5 cm. (Not previously seen). Composition: Solid Echogenicity: Isoechoic Shape: wider than tall. Margins: Smooth Echogenic foci: None Total points: 3 ACR TI-RADS category: TR 3, mildly suspicious. IMPRESSION: Multiple thyroid nodules. The most suspicious nodule identified measures 1.5 cm and is TR 4, moderately suspicious. However, th is nodule appears decreased in size compared to the prior exam. Recommend continued imaging surveillance. ACR TI-RADS definitions and recommendations: TI-RADS 1 (benign): 0 points. FNA not needed. TI-RADS 2 (not suspicious): 2 points. FNA not needed. TI-RADS 3 (mildly suspicious): 3 points. "FNA if 2.5 cm or larger, follow up if 1.5 cm or larger (at 1, 3, and 5 years). TI-RADS 4 (moderately suspicious): 4-6 points. "FNA if 1.5 cm or larger, follow up if 1 cm or larger (at 1, 2, 3, and 5 years). TI-RADS 5 (highly suspicious): 7 points or more. "FNA if 1 cm or larger, follow up if 0.5 cm or larger (every year for 5 years). Reviewed by: Maldonado Oliver MD on 02/03/2022 6:25 PM AKMOLINA Approved by: Maldonado Oliver MD on 02/03/2022 6:25 PM AKDT Station ID: [id number]
== END 2022-02-03 14:26 | disposition home or self-care (01) ==
LOC: DI 14:25
PROVIDERS: ATTEND Internal Medicine
DX: E04.2 Nontoxic multinodular goiter (principal)

== ENCOUNTER 2022-12-06 12:31 | Outpatient (CLI) | payer MEDICARE, OTHER ==
--- NOTE | 2022-12-07 11:53 | Mammography Report ---
BILATERAL DIGITAL SCREENING MAMMOGRAM 3D/2D: 12/06/2022 CLINICAL: Routine screening. Comparison is made to exams dated: 08/12/2020 mammogram, 07/12/2019 mammogram, and 05/03/2018 mammogram - [facility]. Both breasts are heterogeneously dense, which may obscure small masses (category c / 51-75% glandular tissue). No significant masses, calcifications, or other findings are seen in either breast. There has been no significant interval change. IMPRESSION: NEGATIVE There is no mammographic evidence of malignancy. A 1 year screening mammogram is recommended. Based on the Tyrer Cuzick model (a risk assessment model) the patients lifetime risk is 7.0% and her 10 year risk is 5.2%. According to the ACR, ACS, and NCCN guidelines, an annual breast MRI exam ember g with mammogram is recommended if the patients lifetime risk is 20% or greater. This exam was interpreted at Station ID: [id number]. NOTE: For mammograms, a report in lay terms will be sent to the patient. Approximately 15% of breast malignancies will not be visualized mammographically. In the management of a palpable breast mass, a negative mammogram must not discourage biopsy of a clinically suspicious lesion. Electronically Signed By: Colby eaton/scarlett:12/06/2022 17:34:21 ACR BI-RADS Category 1: Negative 3341F PARENCHYMAL PATTERN: (D) - The breast(s) demonstrate(s) heterogeneously dense fibroglandular kimmy kennedy. BI-RADS CATEGORY: (1) - 1 RECOMMENDATION: (ANNUAL) - Recommend routine annual screening mammography. [id number] 1 year screening LATERALITY: (B)
== END 2022-12-06 12:32 | disposition home or self-care (01) ==
LOC: DI.N 12:31
DX: Z12.31 Encounter for screening mammogram for malignant neoplasm of breast (principal)

== ENCOUNTER 2024-01-21 12:50 | Outpatient (CLI) | payer MEDICARE, OTHER ==
--- NOTE | 2024-01-21 14:58 | Ultrasound Report ---
PROCEDURE: Pelvic Complete INDICATIONS: PELVIC PAIN TECHNIQUE: Real-time transabdominal scanning was performed of the pelvic organs, with image documentation. COMPARISON: None FINDINGS: Uterus: Status post hysterectomy. Unremarkable appearance of the vaginal cuff. Ovaries: Bilateral ovaries were not visualized on this examination. Of note, patient is uncertain if she had bilateral oophorectomies. No suspicious adnexal lesions. Other: No free pelvic fluid. IMPRESSION: Status post hysterectomy. Bilateral ovaries were not visualized on this examination. Recommend correlation with past surgical h istory to confirm if patient had undergone previous bilateral oophorectomies. Reviewed by: Glen Cadena MD on 01/21/2024 2:57 PM PST Approved by: Glen Cadena MD on 01/21/2024 2:57 PM PST Station ID: [id number]
== END 2024-01-21 12:51 | disposition home or self-care (01) ==
LOC: DI 12:50
PROVIDERS: ATTEND Family Medicine
DX: R10.2 Pelvic and perineal pain (principal); Z90.710 Acquired absence of both cervix and uterus

== ENCOUNTER 2024-04-09 13:23 | Outpatient (CLI) | payer MEDICARE, OTHER ==
--- NOTE | 2024-04-10 10:20 | Mammography Report ---
BILATERAL DIGITAL SCREENING MAMMOGRAM 3D/2D: 04/09/2024 CLINICAL: Routine screening. Comparison is made to exams dated: 12/06/2022 mammogram, 08/12/2020 mammogram, 07/12/2019 mammogram, mammogram, 05/31/2016 mammogram, and 03/17/2015 mammogram - [facility]. Both breasts are heterogeneously dense, which may obscure small masses (category c / 51-75% glandular tissue). No significant masses, calcifications, or other findings are seen in either breast. There has been no significant interval change. IMPRESSION: NEGATIVE There is no mammographic evidence of malignancy. A 1 year screening mammogram is recommended. Based on the Tyrer Cuzick model (a risk assessment model) the patient's lifetime risk is 6.6% and her 10 year risk is 5.4%. According to the ACR, ACS, and NCCN guidelines, an annual breast MRI exam ember g with mammogram is recommended if the patient's lifetime risk is 20% or greater. This exam was interpreted at Station ID: [id number]. NOTE: For mammograms, a report in lay terms will be sent to the patient. Approximately 15% of breast malignancies will not be visualized mammographically. In the management of a palpable breast mass, a negative mammogram must not discourage biopsy of a clinically suspicious lesion. Electronically Signed By: Maldonado martinez/scarlett:04/09/2024 19:12:55 letter sent: No_Letter ACR BI-RADS Category 1: Negative 3341F PARENCHYMAL PATTERN: (D) - The breast(s) demonstrate(s) heterogeneously dense fibroglandular kimmy kennedy. BI-RADS CATEGORY: (1) - 1 RECOMMENDATION: (ANNUAL) - Recommend routine annual screening mammography. [id number] 1 year screening LATERALITY: (B)
== END 2024-04-09 13:24 | disposition home or self-care (01) ==
LOC: DI.N 13:23
DX: Z12.31 Encounter for screening mammogram for malignant neoplasm of breast (principal); R92.333 Mammographic heterogeneous density, bilateral breasts